=== PATIENT | male | born 1995 | race Two or more races ===

== ENCOUNTER 2022-07-07 10:12 | Emergency (ER) | payer SELFPAY ==
[2022-07-07] MEDS ORDERED: Ketorolac 30 MG/ML SDV IVPUSH ONE (11:26)
[2022-07-07] MEDS ORDERED: cefTRIAXone 2 GM in Sodium Chloride 0.9% 100 ML IV ONE (11:26)
== END 2022-07-07 12:26 | disposition home or self-care (01) ==
LOC: JD.ED 10:12
DX: E11.65 Type 2 diabetes mellitus with hyperglycemia (principal); E03.9 Hypothyroidism, unspecified; E78.1 Pure hyperglyceridemia; E78.00 Pure hypercholesterolemia, unspecified; E66.9 Obesity, unspecified; Z79.84 Long term (current) use of oral hypoglycemic drugs; Z79.899 Other long term (current) drug therapy; Z68.42 Body mass index [BMI] 45.0-49.9, adult
CPT/HCPCS: 82947; 99283; 99284